=== PATIENT | female | born 1935 | race Caucasian/White ===

== ENCOUNTER 2017-08-06 15:36 | Observation (INO) | payer MEDICAID, MEDICARE, OTHER ==
[2017-08-06] MEDS ORDERED: TDAP Vaccine 0.5 mL Syr IM ONE (16:23)
--- NOTE | 2017-08-06 16:28 | ED PDOC ---
Arrival/HPI <Dany Crandall - Last Filed: 08/06/17 22:28> - General Historian: Patient <Luis Vilchis - Last Filed: 08/09/17 15:17> - General Chief Complaint: Trauma Time Seen by Provider: 08/06/17 16:21 - History of Present Illness Narrative History of Present Illness (Text): 08/06/17 16:24 82 year old female, last tetanus doesn't remember, pmh including htn/ hypothyroidism/osteoporosis/anemia, nkda, complaining of fall today and doesn' t remember the event about 6 hours ago. Pt. stated that she walk to the pharmacy today, fall and doesn't remember what happen except she woke up with 2 people around her which she sustained lt. sided facial laceration. Pt. had similar fall about 1 week ago which she fall on her lower back, been having pain on the lower back but doesn't wanna get seen, no chest pain or shortness of breath today, doesn't remember what happened, can not provide the full story , no numbness or tingling, no other medical or psychological complaints. (Luis Vilchis) Past Medical History - Provider Review Nursing Documentation Reviewed: Yes - Infectious Disease Hx of Infectious Diseases: None - Cardiac Hx Cardiac Disorders: No - Pulmonary Hx Respiratory Disorders: No - Neurological Hx Neurological Disorder: No - HEENT Hx HEENT Disorder: No - Renal Hx Renal Disorder: No - Endocrine/Metabolic Hx Endocrine Disorders: Yes Hx Hypothyroidism: Yes - Hematological/Oncological Hx Blood Disorders: No - Integumentary Hx Dermatological Disorder: No - Musculoskeletal/Rheumatological Hx Musculoskeletal Disorders: No - Gastrointestinal Hx Gastrointestinal Disorders: No - Genitourinary/Gynecological Hx Prostate Cancer: No - Psychiatric Hx Hallucinations: No Hx Substance Use: No - Surgical History Hx Thyroidectomy: Yes - Anesthesia Hx Anesthesia: Yes Hx Anesthesia Reactions: No <Luis Vilchis - Last Filed: 08/09/17 15:17> Family/Social History - Physician Review Nursing Documentation Reviewed: Yes Family/Social History: Unknown Family HX Smoking Status: Never Smoked Hx Alcohol Use: No Hx Substance Use: No <Luis Vilchis - Last Filed: 08/09/17 15:17> Allergies/Home Meds <Dany Crandall - Last Filed: 08/06/17 22:28> <Vilchis,Luis Q - Last Filed: 08/09/17 15:17> Allergies/Adverse Reactions: Allergies No Known Allergies Allergy (Verified 08/06/17 15:42) Home Medications: Home Meds Medication Instructions Recorded Confirmed Cyanocobalamin [Vitamin B12] 1 tab PO DAILY 08/06/17 08/06/17 Folic Acid 1 mg PO DAILY 08/06/17 08/06/17 Review of Systems - Review of Systems Constitutional: absent: Fatigue, Fevers Eyes: absent: Vision Changes ENT: absent: Hearing Changes Respiratory: absent: SOB, Cough Cardiovascular: Syncope. absent: Chest Pain Gastrointestinal: absent: Abdominal Pain, Diarrhea, Nausea, Vomiting Skin: Laceration. absent: Rash, Pruritis, Skin Lesions, Abscess, Ulcer, Cellulitis Neurological: absent: Headache, Dizziness Psychiatric: absent: Anxiety, Depression, Suicidal Ideation <Luis Vilchis Q - Last Filed: 08/09/17 15:17> Physical Exam Vital Signs Reviewed: Yes Temperature: Afebrile Blood Pressure: Normal Pulse: Tachycardic Respiratory Rate: Normal Appearance: Positive for: Well-Appearing, Non-Toxic, Comfortable Pain Distress: Mild Mental Status: Positive for: Alert and Oriented X 3 - Systems Exam Head: Present: Atraumatic, Normocephalic, Other (Facial: lt. lateral eyebrow region visible M-shaped laceration approx. 3cm noted with superficial to intermediate depth with mild lt. periorbital swelling, no deformities.). No: Tenderness, Contusion, Swelling, Ecchymosis, Abrasion Pupils: Present: PERRL Extroacular Muscles: Present: EOMI Conjunctiva: Present: Normal Ears: Present: NORMAL TM, Normal Canal. No: Erythema Mouth: Present: Moist Mucous Membranes Nose (External): Present: Atraumatic. No: Abrasion, Contusion, Laceration Nose (Internal): Present: Normal Inspection, No Active Bleeding. No: Rhinorrhea , Septal Hematoma, Epistaxis Neck: Present: Normal Range of Motion, Trachea Midline. No: MIDLINE TENDERNESS , Paraspinal Tenderness, Lymphadenopathy Respiratory/Chest: Present: Clear to Auscultation, Good Air Exchange. No: Respiratory Distress, Accessory Muscle Use, Wheezes, Decreased Breath Sounds, Rales, Retracting, Rhonchi, Tachypneic, Tender to Palpation Cardiovascular: Present: Regular Rate and Rhythm, Normal S1, S2. No: Murmurs Abdomen: Present: Normal Bowel Sounds. No: Tenderness, Distention, Peritoneal Signs, Rebound, Guarding Back: Present: Normal Inspection, Other (Thoracic to LS spine: +ttp on the lt. paraspinal region of the lumbar region, no thoracic spine tenderness or step off , no paraspinal thoracic region, FROM without limitation, sensation intact, motor 5/5. ). No: CVA Tenderness, Pain with Leg Raise, Decubitus Ulcer Upper Extremity: Present: Normal Inspection. No: Cyanosis, Edema Lower Extremity: Present: Normal Inspection. No: Edema Neurological: Present: GCS=15, CN II-XII Intact, Speech Normal, Motor Func Grossly Intact, Gait Normal, Memory Normal Skin: Present: Warm, Dry, Normal Color. No: Rashes Psychiatric: Present: Alert, Oriented x 3, Normal Insight, Normal Concentration <Luis Vilchis - Last Filed: 08/09/17 15:17> Vital Signs Temp Pulse Resp BP Pulse Ox 08/06/17 19:54 90 18 141/87 97 08/06/17 18:30 88 18 145/92 H 98 08/06/17 15:47 97.6 F 109 H 16 125/82 98 Medical Decision Making <Dany Crandall - Last Filed: 08/06/17 22:28> - RAD Interpretation Science Professor: Radiologist - EKG Interpretation Interpreted by ED Physician: Yes Type: 12 lead EKG <Luis Vilchis - Last Filed: 08/09/17 15:17> ED Course and Treatment: 08/06/17 16:32 -labs/ua -CT -Chest xray -EKG -IVF/aspirin po once negative for ICH intracranially -cardiac monitor technician -NIH score is 0 -Wound irrigate, clean, would suture -Observe and reassess 08/06/17 21:31 -Sensation intact, motor 5/5, wound irrigate with normal saline 1000cc, clean with betadine, 1% lidocaine injected locally approx. 1cc, 6-0 nylon made 6 sutures, hemostasis obtained, bacitracin and gauze dressing applied, sensation intact, motor 5/5. -Orthostatic v/s performed and no acute findings. -EKG: NSR @ 83 BPM, no ST elevation or depression, no T wave inversion. -Chest xray: Emergency room wet read show no active disease -CT Head: Left facial bruising/edema with laceration, no underlying fracture identified, no acute intracranial abnormality -CT Facial: Left facial and periorbital soft tissue swelling and bruising with laceration no underlying fracture, sinusitis noted -CT Lumbar: Degenerative change, no acute fracture -Based on the patient's given history and story, I would likely to admit her to rule out any cardiac or neurological cause of her syncope. -Family request Dr. Verdugo for admission, pending call back and case endorsed to Dr. Crandall as I discussed the case with Dr. Crandall. 08/06/17 21:43 -I spoke to Dr. polk, discussed about the case/labs/radiology result, agreed on the admission for telemetry to her service. -Pt. is on the levothryoxine 25mcg and request her dose, ordered. -Dr. Crandall agreed on the admission order as he is requesting for the admission order. (Luis Vilchis) - Lab Interpretations Microbiology Results: Microbiology Results 08/06/17 20:00 Urine,Clean Catch Urine Culture - Final No Growth (<1,000 CFU/ML) Lab Results: 08/06/17 16:30 08/06/17 16:30 Lab Results 08/06/17 21:00: Urine Color Light yellow, Urine Appearance Clear, Urine pH 7.0, Ur Specific [place] 1.010, Urine Protein Negative, Urine Glucose (UA) Negative, Urine Ketones Negative, Urine Blood Small H, Urine Nitrate Negative, Urine Bilirubin Negative, Urine Urobilinogen 0.2, Ur Leukocyte Esterase Small H, Urine RBC 0 - 2, Urine WBC 0 - 2, Ur Epithelial Cells None, Urine Bacteria Many 08/06/17 16:30: WBC 8.4, RBC 3.97, Hgb 12.3, Hct 35.6 L, MCV 89.7, MCH 31.0, MCHC 34.6, RDW 12.9, Plt Count 294, MPV 8.8, Gran % 77.9 H, Lymph % (Auto) 13.8 L, [place] % (Auto) 7.9 H, Eos % (Auto) 0.2 L, Baso % (Auto) 0.2, Gran # 6.50, Lymph # 1.2, [place] # 0.7 H, Eos # 0.0, Baso # 0.02 08/06/17 16:30: Sodium 131 L, Potassium 2.9 L*, Chloride 92 L, Carbon Dioxide 30 , Anion Gap 12, BUN 19, Creatinine 0.6 L, Est GFR ( Amer) > 60, Est GFR ( Non-Af Amer) > 60, Random Glucose 170 H, Calcium 9.0, Magnesium 1.9, Total Bilirubin 0.4, AST 34, ALT 25, Alkaline Phosphatase 71, Lactate Dehydrogenase 536, Total Creatine Kinase 202, Troponin I < 0.01, Total Protein 7.2, Albumin 4.1, Globulin 3.1, Albumin/Globulin Ratio 1.3 - RAD Interpretation Radiology Orders: 08/06/17 16:21 HEAD W/O CONTRAST [CT] Stat LUMBAR SPINE W/O CONTRAST [CT] Stat CHEST PORTABLE [RAD] Stat 08/06/17 16:22 MAXILLOFACIAL W/O CONTRAST [CT] Stat CT Head: FINDINGS: Brain: There is dilatation of sulci gyri and ventricles. There is no midline shift. There is decreased attenuation in periventricular white matter. There are basal ganglia calcifications bilaterally. There are no focal masses. There are no focal hemorrhages. Roberts-white differentiation is visualized. Ventricles: See above. Bones: Cranial vault is intact. No facial fractures are visualized. Soft tissues: There is left facial and periorbital bruising and edema. There is laceration with air in the subcutaneous tissues. Sinuses: There is no acute sinusitis. Ears and mastoids: Middle ears and mastoids are unremarkable. Orbits: Globes are intact. IMPRESSION: Left facial bruising/edema with laceration, no underlying fracture identified, no acute intracranial abnormality Thank you for allowing us to participate in the care of your patient. Dictated and Authenticated by: Edna Dang MD 08/06/2017 8:12 PM Eastern Time ([place] & [place]) CT Facial: FINDINGS: Bones/joints: There are no acute facial bone fractures. There are degenerative changes in the upper cervical spine. Soft tissues: There is left facial and periorbital edema and bruising. There is laceration with air in the soft tissues of the left temporal region. There are no facial masses Vasculature: Lack of contrast limits evaluation of vascular structures. Lymph nodes: There is no pathologic adenopathy. Orbits: Globes are intact. Retrobulbar structures are symmetric. Salivary glands: Parotid and submandibular glands are unremarkable. Sinuses: There is minimal mucoperiosteal thickening in the maxillary sinuses. There is mild mucosal thickening in the ethmoid air cells. There are no air-fluid levels in the sinuses. Ears and mastoids: Middle ears and mastoids are unremarkable. Dental: Patient is edentulous. Brain: No focal abnormalities are seen in visualized portion of the brain. IMPRESSION: Left facial and periorbital soft tissue swelling and bruising with laceration no underlying fracture Additional findings as described above. Thank you for allowing us to participate in the care of your patient. Dictated and Authenticated by: Edna Dang CT Lumbar: FINDINGS: Vertebrae: T12 is incompletely imaged. L1 and L4 vertebral bodies are normal in height. There is mild posterior loss of height at L5. Posterior elements are intact at all levels. There is degenerative facet disease greatest L3-L4, L4-L5 and L5-S1. Sacroiliac joints are patent. Bony structures are osteopenic. There is posterior disc space narrowing T12-L1, L1-L2 and L2/L3. There is vacuum phenomena at L2-L3 and L4-L5. There is anterolisthesis of L3 on L4 with posterior disc bulging. There is retrolisthesis of L4 on L5 with spur formation encroaching on the bony canal. There is mild disc bulging. There is marked L4-L5 and L5-S1 disc space narrowing. There is subchondral sclerosis and subchondral cyst formation. Discs/spinal canal/neural foramina: See above. Soft tissues: Psoas and paraspinous muscles are symmetric. Vasculature: There are vascular calcifications. IMPRESSION: Degenerative change, no acute fracture Thank you for allowing us to participate in the care of your patient. Dictated and Authenticated by: Edna Dang MD 08/06/2017 8:25 PM Eastern Time ([place] & [place]) Chest xray: Bilateral apical thickening, please view the official report for complete report. (Luis Vilchis) - EKG Interpretation EKG Interpretation (Text): 08/06/17 17:20 -EKG: NSR @ 83 BPM, no ST elevation or depression, no T wave inversion. (Luis Vilchis) - Medication Orders Current Medication Orders: Discontinued Medications Amlodipine Besylate (Norvasc) 5 mg PO DAILY [facility] Last Admin: 08/08/17 09:28 Dose: 5 mg Aspirin (Aspirin) 325 mg PO STAT STA Stop: 08/06/17 20:25 Last Admin: 08/06/17 22:27 Dose: 325 mg Aspirin (Aspirin Chewable) 81 mg PO DAILY [facility] Last Admin: 08/08/17 09:28 Dose: 81 mg Famotidine (Pepcid) 20 mg IV DAILY [facility] Last Admin: 08/08/17 09:28 Dose: 20 mg eMAR Start Stop Document 08/08/17 09:28 KE (Rec: 08/08/17 09:28 KE [id number]) Intravenous Solution Start Date 08/08/17 Start Time 09:28 Sodium Chloride (Sodium Chloride 0.9%) 1,000 mls @ 100 mls/hr IV .Q10H [facility] Last Admin: 08/06/17 16:36 Dose: 100 mls/hr eMAR Start Stop Document 08/06/17 16:36 EQ (Rec: 08/06/17 16:36 EQ [id number]) Intravenous Solution Start Date 08/06/17 Start Time 16:36 Sodium Chloride (Sodium Chloride 0.9%) 1,000 mls @ 75 mls/hr IV .[id number] [facility] Last Admin: 08/07/17 12:18 Dose: Levothyroxine Sodium (Synthroid) 25 mcg PO STAT STA Stop: 08/06/17 21:43 Last Admin: 08/06/17 22:27 Dose: 25 mcg Potassium Chloride (K-Dur 20 Meq Er Tab) 40 meq PO STAT STA Stop: 08/06/17 17:50 Last Admin: 08/06/17 19:53 Dose: 40 meq Potassium Chloride (K-Dur 20 Meq Er Tab) 20 meq PO ONCE ONE Stop: 08/07/17 07:14 Last Admin: 08/07/17 09:26 Dose: 20 meq Potassium Chloride (K-Dur 20 Meq Er Tab) 40 meq PO ONCE ONE Stop: 08/07/17 14:22 Last Admin: 08/07/17 15:11 Dose: 40 meq Tetanus/Reduced Diphtheria/Acell Pertussis (Boostrix Vaccine Inj) 0.5 ml IM .ONCE ONE Stop: 08/06/17 16:24 Last Admin: 08/06/17 16:48 Dose: 0.5 ml Immunization Registry Document 08/06/17 16:48 EQ (Rec: 08/06/17 16:48 EQ [id number]) Immunization Registry Consent Date 08/06/17 NIHSS Scale ([place]) Time Performed: 16:24 - How Severe is the [place] Baseline Level of Consciousness: 0=Alert LOC to Questions: 0=Both comments correct LOC to commands: 0=Obeys both correctly Best Gaze: 0=Normal Visual: 0=No visual loss Facial: 0=Normal Motor Arm - Left: 0=No drift Motor Arm - Right: 0=No drift Motor Leg - Left: 0=No drift Motor Leg - Right: 0=No drift Limb Ataxia: 0=Absent Sensory: 0=Normal Best Language: 0=No aphasia Dysarthia: 0=Normal articulation Extinction & Inattention (Neglect): 0=Normal, no object Score: 0 Risk Level: No Stroke Risk <Luis Vilchis - Last Filed: 08/09/17 15:17> rTPA Inclusion/Exclusion - Refusal of Treatment Patient Refused Treatment: Yes - Inclusion Criteria for Altepase Patient is 18 years or Older: Yes The Clinical Diagnosis of Ischemic Stroke That is Causing a Potentially Disabling Neurological Deficit: No Time of Onset is Well Established to be Less Than 270 Minute Before Treatment Would Begin: No Risk/Benefit Discussed With Patient/Family Member Present: Yes - Exclusion Criteria for Altepase Uncontrolled Hypertension at Time of Treatment (Systolic BP above 185 or Diastolic BP above 110 mmHg): No Less Than 3 Months Had a Recent: Head Trauma Active Internal Bleeding: No Evidence of an Intracranial Hemorrhage: No Suspicion of Subarachnoid Hemorrhage on Pretreatment Evaluation Even if CT Head Negative For Hemorrhage: No <Luis Vilchis - Last Filed: 08/09/17 15:17> - PA / BORING MACHINE OPERATOR VERTICAL / Resident Statement HÉCTOR has reviewed & agrees with the documentation as recorded. HÉCTOR has examined the patient and agrees with the treatment plan. <Dany Crandall - Last Filed: 08/06/17 22:28> - PA / BORING MACHINE OPERATOR VERTICAL / Resident Statement HÉCTOR has reviewed & agrees with the documentation as recorded. <Luis Vilchis - Last Filed: 08/09/17 15:17> Disposition/Present on Arrival <Dany Crandall - Last Filed: 08/06/17 22:28> - Present on Arrival Any Indicators Present on Arrival: No History of DVT/PE: No History of Uncontrolled Diabetes: No Urinary Catheter: No History of Decub. Ulcer: No History Surgical Site Infection Following: None - Disposition Have Diagnosis and Disposition been Completed?: Yes Disposition Time: 20:29 Patient Plan: Admission, Telemetry <Luis Vilchis - Last Filed: 08/09/17 15:17> - Disposition Diagnosis: Syncope, Sinusitis, Facial contusion, Facial laceration, Hypokalemia Disposition: HOSPITALIZED Condition: STABLE
[2017-08-06] MEDS ORDERED: Sodium Chloride 0.9% 1,000 ML IV SCH (16:30)
[2017-08-06 17:02] LABS: BASO # 0.02 K/mm3 (0.0-2.0); BASO % 0.2 % (0.0-3.0); EOS % 0.2 % (1.5-5.0); GRAN # 6.5 (1.4-6.5); GRAN % 77.9 % (50.0-68.0); HEMATOCRIT 35.6 % (36.0-48.0); LYMPH # 1.2 (1.2-3.4); LYMPH % 13.8 % (22.0-35.0); MEAN CELL VOLUME 89.7 fl (80.0-105.0); MEAN CORPUSCULAR HGB CONC 34.6 g/dl (31.0-37.0); MEAN PLATELET VOLUME 8.8 fl (7.0-11.0); MONO # 0.7 (0.1-0.6); MONO % 7.9 % (1.0-6.0); RED CELL DISTRIBUTION WIDTH 12.9 % (11.5-14.5); WHITE BLOOD COUNT 8.4 10^3/ul (4.5-11.0)
[2017-08-06 17:27] LABS: TROPONIN I < 0.01 ng/mL
[2017-08-06 17:38] LABS: BLOOD UREA NITROGEN 19 mg/dL (7-21); CHLORIDE 92 mmol/L (98-107); GFR AFRICAN-AMERICAN > 60; GLUCOSE,RANDOM 170 mg/dL (70-110); SODIUM 131 mmol/L (132-148)
[2017-08-06 17:39] LABS: ALB/GLOB RATIO 1.3 (1.1-1.8); ALKALINE PHOSPHATASE 71 U/L (38-126); ALT/SGPT 25 U/L (7-56); AST/SGOT 34 U/L (14-36); BILIRUBIN,TOTAL 0.4 mg/dL (0.2-1.3); CARBON DIOXIDE 30 mmol/L (21-33); MAGNESIUM 1.9 mg/dL (1.7-2.2); TOTAL PROTEIN 7.2 g/dL (5.8-8.3)
[2017-08-06 17:43] LABS: POTASSIUM 2.9 mmol/L (3.6-5.0)
[2017-08-06] MEDS ORDERED: Potassium Chloride 20 mEq ER Tab PO STA (17:49)
--- NOTE | 2017-08-06 20:13 | CT ---
EXAM: CT Head Without Intravenous Contrast EXAM DATE/TIME: 08/06/2017 4:21 PM CLINICAL HISTORY: 82 years old, female; Injury or trauma; Fall; Initial encounter; Laceration; Consciousness not specified; Without residual foreign body; Face; Injury date: 08-06-17 TECHNIQUE: Axial computed tomography images of the head/brain without intravenous contrast. All CT scans at this facility use one or more dose reduction techniques, viz.: automated exposure control; ma/kV adjustment per patient size (including targeted exams where dose is matched to indication; i.e. head); or iterative reconstruction technique. COMPARISON: There are no prior studies for comparison. FINDINGS: Brain: There is dilatation of sulci gyri and ventricles. There is no midline shift. There is decreased attenuation in periventricular white matter. There are basal ganglia calcifications bilaterally. There are no focal masses. There are no focal hemorrhages. Roberts-white differentiation is visualized. Ventricles: See above. Bones: Cranial vault is intact. No facial fractures are visualized. Soft tissues: There is left facial and periorbital bruising and edema. There is laceration with air in the subcutaneous tissues. Sinuses: There is no acute sinusitis. Ears and mastoids: Middle ears and mastoids are unremarkable. Orbits: Globes are intact. IMPRESSION: Left facial bruising/edema with laceration, no underlying fracture identified, no acute intracranial abnormality
--- NOTE | 2017-08-06 20:19 | CT ---
EXAM: CT Maxillofacial Without Intravenous Contrast EXAM DATE/TIME: 08/06/2017 4:22 PM CLINICAL HISTORY: 82 years old, female; Injury or trauma; Fall; Initial encounter; Laceration; Cheek bone; Left; Without residual foreign body; Injury date: 08-06-17; Additional info: Lt. Sided facial injury S/P fall TECHNIQUE: Axial computed tomography images of the face without intravenous contrast. All CT scans at this facility use one or more dose reduction techniques, viz.: automated exposure control; ma/kV adjustment per patient size (including targeted exams where dose is matched to indication; i.e. head); or iterative reconstruction technique. Coronal and sagittal reformatted images were created and reviewed. COMPARISON: There are no prior studies for comparison. FINDINGS: Bones/joints: There are no acute facial bone fractures. There are degenerative changes in the upper cervical spine. Soft tissues: There is left facial and periorbital edema and bruising. There is laceration with air in the soft tissues of the left temporal region. There are no facial masses Vasculature: Lack of contrast limits evaluation of vascular structures. Lymph nodes: There is no pathologic adenopathy. Orbits: Globes are intact. Retrobulbar structures are symmetric. Salivary glands: Parotid and submandibular glands are unremarkable. Sinuses: There is minimal mucoperiosteal thickening in the maxillary sinuses. There is mild mucosal thickening in the ethmoid air cells. There are no air-fluid levels in the sinuses. Ears and mastoids: Middle ears and mastoids are unremarkable. Dental: Patient is edentulous. Brain: No focal abnormalities are seen in visualized portion of the brain. IMPRESSION: Left facial and periorbital soft tissue swelling and bruising with laceration no underlying fracture Additional findings as described above.
--- NOTE | 2017-08-06 20:25 | CT ---
EXAM: CT Lumbar Spine Without Intravenous Contrast EXAM DATE/TIME: 08/06/2017 4:21 PM CLINICAL HISTORY: 82 years old, female; Injury or trauma; Fall; Initial encounter; Blunt trauma (contusions or hematomas); Injury date: 08-06-17; Additional info: Fall and lower back pain x 1 week TECHNIQUE: Axial computed tomography images of the lumbar spine without intravenous contrast. All CT scans at this facility use one or more dose reduction techniques, viz.: automated exposure control; ma/kV adjustment per patient size (including targeted exams where dose is matched to indication; i.e. head); or iterative reconstruction technique. Coronal and sagittal reformatted images were created and reviewed. COMPARISON: There are no prior studies for comparison. FINDINGS: Vertebrae: T12 is incompletely imaged. L1 and L4 vertebral bodies are normal in height. There is mild posterior loss of height at L5. Posterior elements are intact at all levels. There is degenerative facet disease greatest L3-L4, L4-L5 and L5-S1. Sacroiliac joints are patent. Bony structures are osteopenic. There is posterior disc space narrowing T12-L1, L1-L2 and L2/L3. There is vacuum phenomena at L2-L3 and L4-L5. There is anterolisthesis of L3 on L4 with posterior disc bulging. There is retrolisthesis of L4 on L5 with spur formation encroaching on the bony canal. There is mild disc bulging. There is marked L4-L5 and L5-S1 disc space narrowing. There is subchondral sclerosis and subchondral cyst formation. Discs/spinal canal/neural foramina: See above. Soft tissues: Psoas and paraspinous muscles are symmetric. Vasculature: There are vascular calcifications. IMPRESSION: Degenerative change, no acute fracture
[2017-08-06] MEDS ORDERED: Levothyroxine 25 MCG TAB PO STA (21:42)
[2017-08-06 21:50] LABS: URINE BILIRUBIN NEGATIVE (NEGATIVE); URINE BLOOD SMALL (NEGATIVE); URINE GLUCOSE (UA) NEGATIVE (NEGATIVE); URINE KETONE NEGATIVE (NEGATIVE); URINE LEUKOCYTE ESTERASE SMALL Leu/uL (NEGATIVE); URINE PROTEIN NEGATIVE mg/dL (<30 mg/dL); URINE UROBILINOGEN 0.2 E.U./dL (<1 E.U./dL)
[2017-08-06 21:54] LABS: URINE APPEARANCE CLEAR (CLEAR); URINE COLOR LIGHT YELLOW (YELLOW)
[2017-08-06] MEDS: Sodium Chloride 0.9% 1,000 ML IV SCH (22:27)
[2017-08-06 22:59] LABS: URINE BACTERIA MANY (NEG); URINE RBC 0 - 2 /hpf (0-2); URINE WBC 0 - 2 /hpf (0-6)
[2017-08-07] MEDS ORDERED: Potassium Chloride 20 mEq ER Tab PO ONE ×2 (07:13→14:21)
[2017-08-07 07:33] LABS: BASO # 0.02 K/mm3 (0.0-2.0); BASO % 0.4 % (0.0-3.0); EOS # 0.1 (0.0-0.7); EOS % 0.9 % (1.5-5.0); GRAN # 4.17 (1.4-6.5); GRAN % 73.2 % (50.0-68.0); HEMATOCRIT 35.9 % (36.0-48.0); LYMPH % 17.6 % (22.0-35.0); MEAN CELL VOLUME 90.4 fl (80.0-105.0); MEAN CORPUSCULAR HEMOGLOBIN 30.2 pg (25.0-35.0); MEAN CORPUSCULAR HGB CONC 33.4 g/dl (31.0-37.0); MEAN PLATELET VOLUME 8.3 fl (7.0-11.0); MONO # 0.5 (0.1-0.6); MONO % 7.9 % (1.0-6.0); WHITE BLOOD COUNT 5.7 10^3/ul (4.5-11.0)
[2017-08-07 07:41] LABS: BLOOD UREA NITROGEN 13 mg/dL (7-21); CALCIUM 8.3 mg/dL (8.4-10.5); CARBON DIOXIDE 28 mmol/L (21-33); CHLORIDE 99 mmol/L (98-107); GFR AFRICAN-AMERICAN > 60; GLUCOSE,RANDOM 112 mg/dL (70-110); POTASSIUM 3.6 mmol/L (3.6-5.0); SODIUM 135 mmol/L (132-148)
[2017-08-07 07:52] LABS: TROPONIN I < 0.01 ng/mL
[2017-08-07 08:00] VITALS: O2SAT 95
--- NOTE | 2017-08-07 08:50 | HP ---
HISTORY OF PRESENT ILLNESS: Ms. Olivia is an 82-year-old female, well known to me from office. She was walking on the road and was transported to the ER. She is unaware of the event in between. She passed out on the road and was transported to ER with the ambulance. She had laceration on the left side of the scalp, had few stitches, placed in the ER. No history of convulsions. Her sodium was found to be low at 131 and potassium at 2.7. Potassium was repleted in the ER. She is alert, oriented. She does not remember events. No witnessed convulsions during altered sensorium. PAST MEDICAL HISTORY: Hypertension, B12 deficiency, hypothyroidism, abnormal weight loss. FAMILY HISTORY: Noncontributory. PERSONAL HISTORY: Never smoked, no history of alcohol abuse. SOCIAL HISTORY: Lives with her at home. ALLERGIES: No known drug allergies. HOME MEDICATIONS: Folic acid 1 mg daily, cyanocobalamin 1 tablet p.o. daily, hydrochlorothiazide 25 daily, amlodipine 5 mg daily. REVIEW OF SYSTEMS: As per HPI. Rest of 12-point review of systems reviewed and negative. PHYSICAL EXAMINATION: GENERAL: Comfortable in bed, in no acute distress. VITAL SIGNS: Temperature 98.7, heart rate 90 per minute, respiratory rate 18 per minute, and blood pressure 140/87, pulse oximetry 98% on room air. HEENT: Bruise around the left eye. Stitches on the left side of the scalp. Pallor positive. NECK: No lymphadenopathy. CHEST: Air entry present and equal bilaterally. No added sounds. CARDIOVASCULAR: S1 and S2 normal. No murmur. No gallop. ABDOMEN: Soft and nontender. No hepatosplenomegaly. EXTREMITIES: No edema. HUMAN RESOURCES SAFETY MANAGER: Alert and oriented x3. No focal sensory or motor deficits. SKIN: Bruises around the left eye. SPINE: Nontender. LABORATORY DATA: CT of the head, unremarkable. EKG, normal sinus rhythm. Chest x-ray, no infiltrate. Large white count 8.4, hemoglobin 12.2, hematocrit 35.6, and platelet count 294. Sodium 131, potassium 2.9, BUN 19, creatinine 0.6, and glucose 170. Cardiac enzyme not elevated. ASSESSMENT: 1. Syncope. 2. Hypertension. 3. B12 deficiency. 4. Abnormal weight loss. 5. Laceration on the left side of the face. PLAN: She will be admitted to telemonitoring. We will continue levothyroxine 25 mcg daily, hold hydrochlorothiazide, IV fluid normal saline at 80 mL an hour, replete potassium. She received 40 mEq in the ER. We will repeat the labs in the a.m. Cardiac enzymes ordered with the a.m. labs. Cardiology consultation with Dr. Coyle requested. Neurology consultation with Dr. Keita requested. Echocardiogram ordered. Carotid Doppler and vertebral artery Doppler requested. Hemoglobin and hematocrit stable. We will reassess after the studies are done. We will continue IV fluids. Pepcid 20 mg IV daily. We will start Norvasc 5 mg daily for elevated blood pressure. Cris Gupta MD
[2017-08-07] MEDS: Sodium Chloride 0.9% 1,000 ML IV SCH ×2 (09:36→12:18)
--- NOTE | 2017-08-07 09:50 | RAD ---
HISTORY: medical clearance COMPARISON: None available. TECHNIQUE: Chest, one view. FINDINGS: LUNGS: Biapical pleural thickening. No focal consolidation. Please note that chest x-ray has limited sensitivity for the detection of pulmonary masses. PLEURA: No significant pleural effusion identified. No definite pneumothorax . CARDIOVASCULAR: Ectatic aorta. Atherosclerotic calcifications. Heart size appears top normal. OSSEOUS STRUCTURES: Degenerative changes. VISUALIZED UPPER ABDOMEN: Unremarkable. OTHER FINDINGS: None. IMPRESSION: Biapical pleural thickening. Ectatic aorta containing atherosclerotic calcifications.
--- NOTE | 2017-08-07 15:12 | US ---
PROCEDURE: Bilateral carotid artery duplex ultrasound HISTORY: Carotid stenosis syncope PHYSICIAN(S): Rocky Jessica MD. TECHNIQUE: Duplex sonography and color-flow Doppler were used to evaluate the carotid bifurcations and limited segments of the vertebral arteries bilaterally. FINDINGS: There is mild smooth heterogeneous plaque noted at the carotid bifurcations bilaterally. The peak systolic velocity in the proximal right internal carotid artery is 62 cm/sec. This corresponds to a 20 to 39% proximal right ICA stenosis. Normal systolic velocities are noted in the proximal right external carotid artery. There is antegrade flow in the right vertebral artery. The peak systolic velocity in the proximal left internal carotid artery is 63 cm/sec. This corresponds to a 20 to 39% proximal left ICA stenosis. Normal systolic velocities are noted in the proximal left external carotid artery. There is antegrade flow in the left vertebral artery. IMPRESSION: 1. Bilateral 20-39% proximal ICA stenoses. 2. Antegrade flow in both vertebral arteries.
--- NOTE | 2017-08-07 16:53 | CARD ---
APPROVED REPORT EKG Measurement Heart [id number] ME [id number] [id number] <Conclusion> Normal sinus rhythm Possible Left atrial enlargement Borderline ECG
--- NOTE | 2017-08-08 04:37 | CON ---
DATE: HISTORY OF PRESENT ILLNESS: This is an 82-year-old female with past medical history of hypertension, hypothyroidism, who fell and does not remember the event, daughter at bedside, and the patient is hard of hearing and the patient woke up with 2 people around and had left facial laceration and left periorbital hematoma. Similar fall occurs a week ago and brought to the hospital for further evaluation. PAST MEDICAL HISTORY: Hypertension, hypothyroidism, anemia. ALLERGIES: NO KNOWN DRUG ALLERGY. HOME MEDICATIONS: Vitamin B12 and folic acid. REVIEW OF SYSTEMS: A 10-point system is negative except fall and left periorbital hematoma. PHYSICAL EXAMINATION: VITAL SIGNS: On examination, blood pressure 125/82. HEENT: Normocephalic, atraumatic. NECK: Supple. NEURO EXAM: Awake, oriented to self. Hard of hearing. Cranial nerves II through XII were tested. Pupils reactive. EOM intact. Visual ellison full. No facial asymmetry. Tongue midline. MOTOR EXAMINATION: Moves all the extremities equally. Tone normal. Deep tendon reflexes 1+. Both plantars are downgoing. Sensory appears intact. Cerebellar and gait, deferred. IMPRESSION: Syncope, workup in progress. Continue present management. LABORATORY DATA: WBC 8.4, hemoglobin 12.3, hematocrit 35.6, platelet 294. Sodium 131, potassium 2.9, chloride 92, CO2 of 30, glucose 170, BUN 19, creatinine 0.6. Workup in progress, we will follow up, and no acute intracranial abnormality. Vasquez Keita MD
[2017-08-08 06:15] LABS: BASO # 0.03 K/mm3 (0.0-2.0); BASO % 0.4 % (0.0-3.0); EOS # 0.1 (0.0-0.7); EOS % 0.7 % (1.5-5.0); GRAN # 5.12 (1.4-6.5); GRAN % 75.7 % (50.0-68.0); LYMPH # 1.1 (1.2-3.4); LYMPH % 15.8 % (22.0-35.0); MEAN CELL VOLUME 91.1 fl (80.0-105.0); MEAN CORPUSCULAR HEMOGLOBIN 30.3 pg (25.0-35.0); MEAN CORPUSCULAR HGB CONC 33.2 g/dl (31.0-37.0); MEAN PLATELET VOLUME 8.5 fl (7.0-11.0); MONO # 0.5 (0.1-0.6); MONO % 7.4 % (1.0-6.0); RED CELL DISTRIBUTION WIDTH 13.2 % (11.5-14.5); WHITE BLOOD COUNT 6.8 10^3/ul (4.5-11.0)
[2017-08-08 06:43] LABS: ALB/GLOB RATIO 1.2 (1.1-1.8); ALKALINE PHOSPHATASE 58 U/L (38-126); ALT/SGPT 26 U/L (7-56); AST/SGOT 27 U/L (14-36); BILIRUBIN,TOTAL 0.5 mg/dL (0.2-1.3); BLOOD UREA NITROGEN 11 mg/dL (7-21); CALCIUM 8.3 mg/dL (8.4-10.5); CARBON DIOXIDE 25 mmol/L (21-33); CHLORIDE 104 mmol/L (98-107); GFR AFRICAN-AMERICAN > 60; GLUCOSE,RANDOM 110 mg/dL (70-110); PHOSPHOROUS 2.1 mg/dL (2.5-4.5); POTASSIUM 4.2 mmol/L (3.6-5.0); SODIUM 137 mmol/L (132-148); TOTAL PROTEIN 7.1 g/dL (5.8-8.3)
[2017-08-08 07:04] LABS: CHOLESTEROL 163 mg/dL (130-200)
[2017-08-08 07:23] VITALS: BP 156/92; RESP 19; TEMP 98
[2017-08-08 10:03] VITALS: PULSE 84
--- NOTE | 2017-08-08 10:48 | CON ---
DATE: 08/07/2017 REASON FOR CONSULTATION: Syncope, cardiac evaluation. BRIEF CLINICAL HISTORY: This is an 82-year-old female with past medical history of hypertension, hypothyroidism, syncope, and history of anemia, was going and suddenly probably lost conscious and brought to the ER. The patient has no recollection what has happened to her, history of fall, but states that she was going to some place and she has no recollection what has happened to her. Probably, she fell down and passed out. When she woke up, two people were around her and ambulance brought her here. The patient denies chest pain, denies shortness of breath, denies any palpitations, though on arrival the blood workup showed potassium was 2.9. PAST MEDICAL HISTORY: Significant for B12 deficiency, anemia, hypothyroidism, and history of weight loss. FAMILY HISTORY: Noncontributory. SOCIAL HISTORY: No history of smoking. No history of alcohol abuse. Lives with . ALLERGIES: NO KNOWN DRUG ALLERGIES. CURRENT MEDICATIONS: The patient was taking folic acid 1 mg daily, cyanocobalamin one tablet p.o. daily, hydrochlorothiazide 25 mg daily, and amlodipine 5 mg daily. REVIEW OF SYSTEMS: As per HPI. PHYSICAL EXAMINATION: As follows; VITAL SIGNS: Temperature afebrile, heart rate and blood pressure 124/76. HEENT: PERRLA. Extraocular muscles intact. NECK: Supple. No carotid bruits or thyromegaly. CHEST: Clear to auscultation. HEART: S1 and S2 regular. ABDOMEN: Soft. EXTREMITIES: Clubbing and cyanosis negative. LABORATORY DATA: EKG shows normal sinus, possibly left atrial abnormality, heart rate 83. Blood workup; WBC 8.4, hemoglobin 12.2, hematocrit 35.6, platelet count 294. Chemistry showed sodium 130, potassium 2.9, chloride 92, carbon dioxide 30, , BUN 19, and creatinine 0.1. IMPRESSION: Possibly this episode of falling is secondary to severe hypokalemia, but rule out any ischemic event, rule out any arrhythmia, rule out any orthostatic hypotension. PLAN: Aggressively supplement potassium. Echo to rule out any structural heart disease, orthostatic hypotension. Lipid profile, TSH, and hemoglobin A1c. Further recommendation as per hospital course. Probably, this low potassium could be secondary to hydrochlorothiazide. So far troponin remains negative, we will follow the second set, pending. We will get echo and carotid duplex workup. Thank you, Dr. Gupta for providing me the opportunity in taking care of the patient, Monica Olivia. We will follow with you. Paulino Coyle MD
--- NOTE | 2017-08-08 10:59 | DS ---
DISCHARGE DIAGNOSES: 1. Syncope. 2. Hypertension. 3. B12 deficiency 4. Abnormal weight loss. 5. Laceration left side of the face. 6. Hypokalemia. HOSPITAL COURSE: The patient was admitted after she had a syncope, road side. She developed laceration on the left side of the face and stitches were placed in the ER. She was evaluated by Neurology, Dr. Keita. She was evaluated by Cardiology, Dr. Coyle. Cardiac Doppler was done. Carotid and vertebral Doppler did not show significant stenosis. She remains stable during the hospitalization. Cardiac enzymes were within limits. PHYSICAL EXAMINATION: GENERAL: Comfortable in bed, in no acute distress. VITAL SIGNS: Temperature is 98.8, heart rate is 86 per minute, blood pressure is 150/90, and pulse oximetry is 98% on room air. HEENT: Pallor positive. Bruises around the left eye and stitches in place on the left temporal. NECK: No lymphadenopathy. CHEST: Air entry present equal bilateral. No added sounds. CARDIOVASCULAR S1 and S2 normal. No murmur. No gallop. ABDOMEN: Soft and nontender. No hepatosplenomegaly. EXTREMITIES: No edema. CENTRAL NERVOUS SYSTEM: Alert and oriented x3. No focal sensory or motor deficit. SKIN: As above. SPINE: Nontender. CONDITION ON DISCHARGE: Stable. DISPOSITION: Discharged to home. DISCHARGE MEDICATIONS: Norvasc 5 mg p.o. daily, aspirin 81 mg daily, Pepcid 20 mg daily, B12 1 mg daily, and folic acid 1 mg daily. DISCHARGE INSTRUCTIONS: Follow up with Dr. Gupta on 08/17/2017 at 10:30 a.m. Follow up with Dr. Coyle and follow up with Dr. Keita. Had a lengthy discussion with the daughter at bedside. Explained her medical condition. Answered all her questions to her satisfaction. Discussed with the staff nurse. Time spent in preparing discharge and coordinating care is 60 minutes. Cris Gupta MD
--- NOTE | 2017-08-08 11:31 | CARD ---
APPROVED REPORT EXAM: Two-dimensional and M-mode echocardiogram with Doppler and color Doppler. Other Information Quality : AverageRhythm : INDICATION Syncope 2D DIMENSIONS Left Atrium (2D)3.4 (1.6-4.0cm)IVSd1.3 (0.7-1.1cm) LVDd3.1 (3.9-5.9cm)PWd1.3 (0.7-1.1cm) LVDs2.1 (2.5-4.0cm)FS (%) 32.5 % LVEF (%)62.0 (>50%) M-Mode DIMENSIONS Aortic Root3.10 (2.2-3.7cm)Aortic Cusp Exc.1.80 (1.5-2.0cm) Aortic Valve AoV Peak Ztlrkkqe396.0cm/s Mitral Valve MV E Sehiteeb33.2cm/sMV A Uumxjcir228.0cm/sE/A ratio0.7 TDI E/Lateral E'0.0E/Medial E'0.0 Tricuspid Valve TR Peak Xbxqeybv527jw/sRAP [id number] Peak Gr.22mmHg [id number] LEFT VENTRICLE The left ventricle is normal size. There is moderate concentric left ventricular hypertrophy. The left ventricular function is normal. The left ventricular ejection fraction is within the normal range. There is normal LV segmental wall motion. RIGHT VENTRICLE The right ventricle is normal size. ATRIA The left atrium size is normal. The right atrium size is normal. The interatrial septum is intact with no evidence for an atrial septal defect. AORTIC VALVE The aortic valve is normal in structure. MITRAL VALVE The mitral valve is normal in structure. Mitral annular calcification is moderate. TRICUSPID VALVE The tricuspid valve is not well visualized. There is mild tricuspid regurgitation. PULMONIC VALVE The pulmonic valve is not well visualized. GREAT VESSELS The aortic root is normal in size. PERICARDIAL EFFUSION There is no pericardial effusion. <Conclusion> The left ventricle is normal size. There is moderate concentric left ventricular hypertrophy. The left ventricular function is normal.
--- NOTE | 2017-08-08 12:48 | PN ---
DATE: 08/08/2017 REASON FOR CONSULTATION AND FOLLOWUP: Syncope, cardiac evaluation. SUBJECTIVE: The patient denies any chest pain, shortness of breath, or any palpitation. PHYSICAL EXAMINATION: As follows: VITAL SIGNS: Temperature is afebrile, heart rate is 84, and blood pressure is 152/92. HEENT: PERRLA intact. NECK: Supple. No carotid bruits or thyromegaly. CHEST: Clear to auscultation. HEART: S1 and S2, regular. ABDOMEN: Soft. EXTREMITIES: Clubbing and cyanosis negative. LABORATORY DATA: Blood workup as follows: WBC of 6.8, hemoglobin of 12.3, hematocrit of 37, and platelet count of 313. Chemistry shows sodium of 130, potassium of 4.2, chloride of 102, carbon dioxide 25, anion gap of 12, BUN of 11, and creatinine of 0.6, TSH of 5.66. IMPRESSION: An 82-year-old female with past medical history significant for B12 deficiency, anemia, hypothyroidism, and history of weight loss who was fell down because of severe hypokalemia. Prior to that the patient had 2 episodes of fall most likely secondary to hypokalemia. The patient denies any chest pain, shortness of breath or any palpitations. So far troponin remains negative. Orthostatic hypotension was done yesterday found to be negative, as follows; blood pressure lying down 139/90, sitting 149/96 and standing 152/93. RECOMMENDATION: Continue gentle supplement. Continue gentle antihypertensive medications, amlodipine. Hold hydrochlorothiazide. Monitor electrolytes. Discussed with the patient and discussed with the daughter. We will follow with you. Awaiting for the echo to be done, we will follow when the echo is done. We will follow with you. Thank you Dr. Gupta for providing the opportunity in taking care of the patient, Monica Olivia. Paulino Coyle MD
--- NOTE | 2017-08-08 19:09 | EEG ---
DATE: 08/08/2017 CONDITION OF THE RECORDING: Drowsy. DIAGNOSIS: Syncope. MEDICATIONS: Reviewed by nurse's reconciliation sheet. INTERPRETATION: This is a 16-channel international recording. Background activity of this tracing was composed of 8 cycles per second. There was a small amount of beta activity of 16 to 20 cycles per second seen in this recording. There was a small amount of theta activity of 5 to 7 cycles per seconds seen in this recording. Drowsiness was characterized by mixed beta and theta activities. Sleep was characterized by vertex transient waves, sleep spindles, and bilateral slowing. Photic stimulation showed no changes in tracing. No paroxysmal activity is noted in this recording. CONCLUSION: This is a normal drowsy EEG. No evidence of any epileptiform activity. Please clinically correlate. Tra Keita MD
== END 2017-08-08 11:18 | disposition home or self-care (01) ==
LOC: ED 15:36 → ERH 21:40 → 2RSO 22:30
PROVIDERS: ADMIT Internal Medicine Medical Oncology; ATTEND Internal Medicine Medical Oncology
DX: R55 Syncope and collapse (principal); S01.81XA Laceration without foreign body of other part of head, initial encounter; E87.6 Hypokalemia; S00.83XA Contusion of other part of head, initial encounter; I10 Essential (primary) hypertension; E53.8 Deficiency of other specified B group vitamins; R63.4 Abnormal weight loss; E03.9 Hypothyroidism, unspecified; D64.9 Anemia, unspecified; H91.90 Unspecified hearing loss, unspecified ear; W19.XXXA Unspecified fall, initial encounter; Y93.01 Activity, walking, marching and hiking; Y92.480 Sidewalk as the place of occurrence of the external cause
CPT/HCPCS: 36415; 70450; 70486; 71010; 72131; 80048; 80053; 80061; 81001; 82550; 83036; 83615; 83735; 84100; 84443; 84484; 85025; 87086; 90471; 90715; 93005; 93306; 93880; 95812; 97116; 97161; 99285; G0378; G8978; G8979; G8980; J7040

== ENCOUNTER 2017-08-12 13:32 | Emergency (ER) | payer MEDICARE, OTHER ==
[2017-08-12 13:42] VITALS: BMI 22.1
[2017-08-12 13:46] VITALS: RESP 18; TEMP 97.6; O2SAT 96
--- NOTE | 2017-08-12 14:36 | ED PDOC ---
Arrival/HPI - General Chief Complaint: Wound Check Time Seen by Provider: 08/12/17 14:06 Historian: Patient - History of Present Illness Narrative History of Present Illness (Text): 08/12/17 14:35 A 82 year old female presents to the emergency department for suture removal to left eyebrow. Patient reports stitches were applied 7 days ago. She denies any redness or swelling. Patient denies any fever, chills or other complaints at this time. PMD: Dr. Tate Past Medical History - Provider Review Nursing Documentation Reviewed: Yes - Infectious Disease Hx of Infectious Diseases: None - Cardiac Hx Cardiac Disorders: No - Pulmonary Hx Respiratory Disorders: No - Neurological Hx Syncope: Yes - HEENT Hx HEENT Disorder: No - Renal Hx Renal Disorder: No - Endocrine/Metabolic Hx Endocrine Disorders: Yes Hx Hypothyroidism: Yes - Hematological/Oncological Hx Blood Disorders: No - Integumentary Hx Dermatological Disorder: No - Musculoskeletal/Rheumatological Hx Musculoskeletal Disorders: No - Gastrointestinal Hx Gastrointestinal Disorders: No - Genitourinary/Gynecological Hx Prostate Cancer: No - Psychiatric Hx Hallucinations: No Hx Substance Use: No - Surgical History Hx Thyroidectomy: Yes - Anesthesia Hx Anesthesia: Yes Hx Anesthesia Reactions: No Family/Social History - Physician Review Nursing Documentation Reviewed: Yes Family/Social History: No Known Family HX Smoking Status: Never Smoked Hx Alcohol Use: No Hx Substance Use: No Allergies/Home Meds Allergies/Adverse Reactions: Allergies No Known Allergies Allergy (Verified 08/06/17 15:42) Home Medications: Home Meds Medication Instructions Recorded Confirmed Cyanocobalamin [Vitamin B12] 1 tab PO DAILY 08/06/17 08/12/17 Folic Acid 1 mg PO DAILY 08/06/17 08/12/17 Review of Systems - Physician Review All systems were reviewed & negative as marked: Yes - Review of Systems Constitutional: absent: Fevers, Night Sweats Skin: Other (Suture removal. No redness or swelling.) Physical Exam Vital Signs Reviewed: Yes Vital Signs Temp Pulse Resp BP Pulse Ox 08/12/17 13:46 97.6 F 104 H 18 153/88 H 96 Temperature: Afebrile Blood Pressure: Hypertensive Pulse: Tachycardic Respiratory Rate: Normal Appearance: Positive for: Well-Appearing, Non-Toxic, Comfortable Pain Distress: None Mental Status: Positive for: Alert and Oriented X 3 - Systems Exam Head: Present: Other (Well heeled sutured removed form left eyebrow. No erythema or swelling.) Pupils: Present: PERRL Extroacular Muscles: Present: EOMI Conjunctiva: Present: Normal Mouth: Present: Moist Mucous Membranes Neurological: Present: GCS=15, CN II-XII Intact, Speech Normal Skin: Present: Warm, Dry, Normal Color. No: Rashes Psychiatric: Present: Alert, Oriented x 3, Normal Insight, Normal Concentration Medical Decision Making ED Course and Treatment: 08/12/17 14:35 Impression: A 82 year old female presents for suture removal Plan: -- Suture removal -- Reassess and disposition Progress Notes: I have discussed the plan with the patient, who expresses understanding. Patient in agreement with plan to be discharged home. Patient is stable for discharge. Patient was instructed to follow up with physician or return if symptoms worsen or new concerning symptoms arise. - PA / PRODUCT PROM[employer]ER [employer] / Resident Statement MD/DO has reviewed & agrees with the documentation as recorded. - Scribe Statement The provider has reviewed the documentation as recorded by the Sandi Ponce Provider Scribe Attestation: All medical record entries made by the Scribe were at my direction and personally dictated by me. I have reviewed the chart and agree that the record accurately reflects my personal performance of the history, physical exam, medical decision making, and the department course for this patient. I have also personally directed, reviewed, and agree with the discharge instructions and disposition. Disposition/Present on Arrival - Present on Arrival Any Indicators Present on Arrival: No History of DVT/PE: No History of Uncontrolled Diabetes: No Urinary Catheter: No History of Decub. Ulcer: No History Surgical Site Infection Following: None - Disposition Have Diagnosis and Disposition been Completed?: Yes Diagnosis: Visit for wound check, Visit for suture removal Disposition: HOME/ ROUTINE Disposition Time: 14:20 Patient Plan: Discharge Patient Problems: Current Active Problems Problem Status Onset Visit for wound check Acute Visit for suture removal Acute Condition: STABLE Discharge Instructions (ExitCare): Acute Wound Care (ED) Print Language: HONDURAN Additional Instructions: Thank you for letting us take care of you today. You were treated for wound check, suture removal. The emergency medical care you received today was directed at your acute symptoms. Return to the Emergency Department if your symptoms worsen, do not improve, or if you have any other problems. Please contact your doctor in 2 days for re-evaluation and follow up. Bring any paperwork you were given at discharge with you along with any medications you are taking to your follow up visit. Our treatment cannot replace ongoing medical care by a primary care provider (PCP) outside of the emergency department. Thank you for allowing the [facility] team to be part of your care today. Referrals: Milly Tate V, DO [Primary Care Provider] - Follow up with primary Forms: [employer] ([place]wana)
[2017-08-12 15:13] VITALS: BP 148/75; PULSE 98
== END 2017-08-12 14:51 | disposition home or self-care (01) ==
LOC: ED 13:32
DX: Z48.02 Encounter for removal of sutures (principal); Z51.89 Encounter for other specified aftercare; E03.9 Hypothyroidism, unspecified

== ENCOUNTER 2017-11-09 22:09 | Observation (INO) | payer MEDICARE, MEDICAID ==
[2017-11-09 22:09] VITALS: BMI 22.1
--- NOTE | 2017-11-09 22:42 | ED PDOC ---
Arrival/HPI - General Chief Complaint: High Blood Pressure Time Seen by Provider: 11/09/17 22:16 Historian: Patient, Spouse - History of Present Illness Narrative History of Present Illness (Text): 11/09/17 22:36 An 82 year old female, whose past medical history includes hypothyroidism, osteoporosis, anemia, presents to the emergency department complaining of high blood pressure this evening. The patient states that she was not feeling well and told her that she needed to lay down. He advised her not to and to check her blood pressure. She states that her blood pressure was high and she got nervous, made dinner, and kept taking her blood pressure throughout the night which kept getting higher. She called her daughter and took her blood pressure with another machine and the reading was even higher which prompted her family to vicente her into the emergency department. The patient denies fevers , chills, headache, dizziness, chest pain, shortness of breath, dyspnea on exertion, cough, abdominal pain, nausea, vomiting, diarrhea, back pain, neck pain, urinary/bowel changes, or any other somatic complaint. PMD: Dr. Tate Time/Duration: Other (This evening) Symptom Onset: Sudden Symptom Course: Unchanged Activities at Onset: Rest, Light Context: Home Past Medical History - Provider Review Nursing Documentation Reviewed: Yes - Infectious Disease Hx of Infectious Diseases: None - Cardiac Hx Cardiac Disorders: No - Pulmonary Hx Respiratory Disorders: No - Neurological Hx Syncope: Yes - HEENT Hx HEENT Disorder: No - Renal Hx Renal Disorder: No - Endocrine/Metabolic Hx Endocrine Disorders: Yes Hx Hypothyroidism: Yes - Hematological/Oncological Hx Blood Disorders: No - Integumentary Hx Dermatological Disorder: No - Musculoskeletal/Rheumatological Hx Musculoskeletal Disorders: No - Gastrointestinal Hx Gastrointestinal Disorders: No - Genitourinary/Gynecological Hx Prostate Cancer: No - Psychiatric Hx Hallucinations: No Hx Substance Use: No - Surgical History Hx Thyroidectomy: Yes - Anesthesia Hx Anesthesia: Yes Hx Anesthesia Reactions: No Family/Social History - Physician Review Nursing Documentation Reviewed: Yes Family/Social History: No Known Family HX Smoking Status: Never Smoked Hx Alcohol Use: No Hx Substance Use: No Allergies/Home Meds Allergies/Adverse Reactions: Allergies No Known Allergies Allergy (Verified 11/09/17 23:00) Home Medications: Home Meds Medication Instructions Recorded Confirmed Cyanocobalamin [Vitamin B12] 2 tab PO DAILY 08/06/17 11/10/17 Folic Acid 1 mg PO DAILY 08/06/17 11/09/17 Levothyroxine [Synthroid] 1 tab PO DAILY 11/09/17 11/10/17 Lovastatin 20 mg PO HS 11/09/17 11/10/17 amLODIPine [Norvasc] 10 mg PO DAILY 11/10/17 11/10/17 Review of Systems - Physician Review All systems were reviewed & negative as marked: Yes - Review of Systems Constitutional: absent: Fevers, Night Sweats Respiratory: absent: SOB, Cough Cardiovascular: absent: Chest Pain, IZQUIERDO Gastrointestinal: absent: Abdominal Pain, Constipation, Diarrhea, Nausea, Vomiting Genitourinary Female: absent: Urine Output Changes Musculoskeletal: absent: Back Pain, Neck Pain Neurological: absent: Headache, Dizziness Physical Exam Vital Signs Reviewed: Yes Vital Signs Temp Pulse Resp BP Pulse Ox 11/10/17 02:49 76 19 121/81 99 11/10/17 01:42 80 17 102/68 98 11/09/17 23:44 74 162/91 H 11/09/17 23:06 77 17 159/95 H 97 11/09/17 22:23 98.2 F 94 H 18 183/103 H 99 Temperature: Afebrile Blood Pressure: Hypertensive Pulse: Tachycardic Respiratory Rate: Normal Appearance: Positive for: Well-Appearing, Non-Toxic, Comfortable Pain Distress: None Mental Status: Positive for: Alert and Oriented X 3 - Systems Exam Head: Present: Atraumatic, Normocephalic Pupils: Present: PERRL Extroacular Muscles: Present: EOMI Conjunctiva: Present: Normal Mouth: Present: Moist Mucous Membranes Neck: Present: Normal Range of Motion Respiratory/Chest: Present: Clear to Auscultation, Good Air Exchange. No: Respiratory Distress, Accessory Muscle Use Cardiovascular: Present: Regular Rate and Rhythm, Normal S1, S2. No: Murmurs Abdomen: Present: Normal Bowel Sounds. No: Tenderness, Distention, Peritoneal Signs Back: Present: Normal Inspection Upper Extremity: Present: Normal Inspection. No: Cyanosis, Edema Lower Extremity: Present: Normal Inspection. No: Edema Neurological: Present: GCS=15, CN II-XII Intact, Speech Normal Skin: Present: Warm, Dry, Normal Color. No: Rashes Psychiatric: Present: Alert, Oriented x 3, Normal Insight, Normal Concentration Medical Decision Making ED Course and Treatment: 11/09/17 22:42 Impression: An 82 year old female presents to the emergency department complaining of high blood pressure this evening. Plan: -- EKG -- Head CT -- Chest X-ray -- Urinalysis -- Labs -- Reassess and disposition Progress Notes: EKG: Ordered, reviewed, and independently interpreted the EKG. Rate : 87 BPM Rhythm : NSR 11/09/17 23:10: Patient states that she has no history of hypertension. She states that she does not take Norvasc. CT Head Without Intravenous Contrast EXAM DATE/TIME: 11/09/2017 10:36 PM Dictated and Authenticated by: Edna Dang MD 11/10/2017 12:48 AM Eastern Time ([place] & [place]) IMPRESSION: Atrophy and small vessel disease, no acute intracranial abnormality 11/10/17 01:55: Case discussed with Dr. Gupta who accepts patient to her service. Will admit patient to Telemetry. 11/10/17 02:29: Dr. Gupta believes that the patient does have a history of hypertension and should be taking the Norvasc which is in opposition with what the patient and daughter believes. - Lab Interpretations Lab Results: 11/09/17 22:54 11/09/17 22:54 Lab Results 11/09/17 23:35: Urine Color Yellow, Urine Appearance Sl cloudy, Urine pH 7.0, Ur Specific [place] 1.010, Urine Protein Trace H, Urine Glucose (UA) Negative, Urine Ketones Negative, Urine Blood Small H, Urine Nitrate Negative, Urine Bilirubin Negative, Urine Urobilinogen 0.2, Ur Leukocyte Esterase Negative, Urine RBC 0 - 2, Urine WBC 0 - 2, Ur Epithelial Cells 0 - 2 11/09/17 22:54: Sodium 139, Potassium 3.2 L, Chloride 99, Carbon Dioxide 31, Anion Gap 12, BUN 14, Creatinine 0.5 L, Est GFR ( Amer) > 60, Est GFR ( Non-Af Amer) > 60, Random Glucose 142 H, Calcium 9.3, Total Bilirubin 0.4, AST 30, ALT 26, Alkaline Phosphatase 104, Lactate Dehydrogenase 597, Total Creatine Kinase 139, Troponin I < 0.01, Total Protein 7.8, Albumin 4.4, Globulin 3.5, Albumin/Globulin Ratio 1.3 11/09/17 22:54: PT 10.2, INR 0.90 L 11/09/17 22:54: WBC 9.5 D, RBC 4.55, Hgb 13.9, Hct 40.9, MCV 89.9, MCH 30.5, MCHC 34.0, RDW 13.5, Plt Count 326, MPV 9.0, Gran % 79.8 H, Lymph % (Auto) 13.8 L, [place] % (Auto) 5.5, Eos % (Auto) 0.8 L, Baso % (Auto) 0.1, Gran # 7.57 H, Lymph # (Auto) 1.3, [place] # (Auto) 0.5, Eos # (Auto) 0.1, Baso # (Auto) 0.01 I have reviewed the lab results: Yes - RAD Interpretation Radiology Orders: 11/09/17 22:36 HEAD W/O CONTRAST [CT] Stat CHEST PORTABLE [RAD] Stat - EKG Interpretation Interpreted by ED Physician: Yes Type: 12 lead EKG - Medication Orders Current Medication Orders: Discontinued Medications Amlodipine Besylate (Norvasc) 5 mg PO DAILY [facility] Last Admin: 11/10/17 11:12 Dose: 5 mg MAR Pulse and Blood Pressure Document 11/10/17 11:12 CD (Rec: 11/10/17 11:13 CD [id number]) Pulse Pulse Rate (60-90) 93 Blood Pressure Blood Pressure (100/60-150/90) 113/67 Aspirin (Aspirin Chewable) 81 mg PO DAILY [facility] Last Admin: 11/10/17 11:13 Dose: 81 mg Atorvastatin Calcium (Lipitor) 10 mg PO HS [facility] Clonidine HCl (Catapres) 0.1 mg PO STAT STA Stop: 11/09/17 23:33 Last Admin: 11/09/17 23:44 Dose: 0.1 mg MAR Pulse and Blood Pressure Document 11/09/17 23:44 IT (Rec: 11/09/17 23:44 IT [id number]) Pulse Pulse Rate (60-90) 74 Blood Pressure Blood Pressure (100/60-150/90) 162/91 Cyanocobalamin (Vitamin B12 1000 Mcg Tab) 1,000 mcg PO DAILY [facility] Levothyroxine Sodium (Synthroid) 50 mcg PO DAILY [facility] Last Admin: 11/10/17 11:13 Dose: 50 mcg Lorazepam (Ativan) 1 mg PO ONCE ONE PRN Reason: Protocol Stop: 11/10/17 02:40 Last Admin: 11/10/17 02:46 Dose: 1 mg Re-Assess: Reassess Psych Meds Document 11/10/17 03:46 ST (Rec: 11/10/17 04:47 [id number]) Reassess Psych Med Effective Potassium Chloride (K-Dur 20 Meq Er Tab) 20 meq PO STAT STA Stop: 11/10/17 03:17 Last Admin: 11/10/17 03:26 Dose: 20 meq - PA / [employer] / Resident Statement MD/DO has reviewed & agrees with the documentation as recorded. - Scribe Statement The provider has reviewed the documentation as recorded by the Scribe Rosina Nolan Provider Scribe Attestation: All medical record entries made by the Scribe were at my direction and personally dictated by me. I have reviewed the chart and agree that the record accurately reflects my personal performance of the history, physical exam, medical decision making, and the department course for this patient. I have also personally directed, reviewed, and agree with the discharge instructions and disposition. Disposition/Present on Arrival - Present on Arrival Any Indicators Present on Arrival: No History of DVT/PE: No History of Uncontrolled Diabetes: No Urinary Catheter: No History of Decub. Ulcer: No History Surgical Site Infection Following: None - Disposition Have Diagnosis and Disposition been Completed?: Yes Diagnosis: Hypertensive crisis, Hypothyroidism, Confusion Disposition: HOSPITALIZED Disposition Time: 02:27 Patient Plan: Admission Condition: GOOD
[2017-11-09 23:01] LABS: BASO # 0.01 K/mm3 (0.0-2.0); BASO % 0.1 % (0.0-3.0); EOS # 0.1 (0.0-0.7); EOS % 0.8 % (1.5-5.0); GRAN # 7.57 (1.4-6.5); GRAN % 79.8 % (50.0-68.0); HEMOGLOBIN 13.9 g/dL (12.0-16.0); LYMPH # 1.3 (1.2-3.4); LYMPH % 13.8 % (22.0-35.0); MEAN CELL VOLUME 89.9 fl (80.0-105.0); MEAN CORPUSCULAR HEMOGLOBIN 30.5 pg (25.0-35.0); MONO # 0.5 (0.1-0.6); MONO % 5.5 % (1.0-6.0); RBC 4.55 10^6/uL (3.5-6.1); RED CELL DISTRIBUTION WIDTH 13.5 % (11.5-14.5); WHITE BLOOD COUNT 9.5 10^3/ul (4.5-11.0)
[2017-11-09 23:11] LABS: ALB/GLOB RATIO 1.3 (1.1-1.8); ALBUMIN 4.4 g/dL (3.0-4.8); ALT/SGPT 26 U/L (7-56); AST/SGOT 30 U/L (14-36); BLOOD UREA NITROGEN 14 mg/dL (7-21); CALCIUM 9.3 mg/dL (8.4-10.5); GFR AFRICAN-AMERICAN > 60; GFR NON-AFRICAN AMERICAN > 60
[2017-11-09 23:12] LABS: INR 0.9 (0.93-1.08); PROTHROMBIN TIME 10.2 SECONDS (9.4-12.5)
[2017-11-09 23:28] LABS: TROPONIN I < 0.01 ng/mL
[2017-11-10 00:03] LABS: URINE APPEARANCE SL CLOUDY (CLEAR); URINE BILIRUBIN NEGATIVE (NEGATIVE); URINE BLOOD SMALL (NEGATIVE); URINE COLOR YELLOW (YELLOW); URINE GLUCOSE (UA) NEGATIVE (NEGATIVE); URINE LEUKOCYTE ESTERASE NEGATIVE Leu/uL (NEGATIVE); URINE PROTEIN TRACE mg/dL (<30 mg/dL); URINE UROBILINOGEN 0.2 E.U./dL (<1 E.U./dL)
[2017-11-10 00:37] LABS: URINE EPITHELIAL CELLS 0 - 2 /hpf (0-5); URINE RBC 0 - 2 /hpf (0-2); URINE WBC 0 - 2 /hpf (0-6)
--- NOTE | 2017-11-10 00:48 | CT ---
EXAM: CT Head Without Intravenous Contrast EXAM DATE/TIME: 11/09/2017 10:36 PM CLINICAL HISTORY: 82 years old, female; Signs and symptoms; Other: Hyperternsion; Additional info: Hypertensive urgency TECHNIQUE: Axial computed tomography images of the head/brain without intravenous contrast. All CT scans at this facility use one or more dose reduction techniques, viz.: automated exposure control; ma/kV adjustment per patient size (including targeted exams where dose is matched to indication; i.e. head); or iterative reconstruction technique. Coronal and sagittal reformatted images were created and reviewed. COMPARISON: CT - HEAD W/O CONTRAST 2017-08-06 18:58 FINDINGS: Brain: There is prominence of sulci gyri and ventricles. There is no midline shift. There is decreased attenuation in periventricular white matter.There are basal ganglia calcifications bilaterally. There are no focal masses. There are no focal hemorrhages. Roberts-white differentiation is visualized. Ventricles: See above. Bones/joints: Bones: Cranial vault is intact. Soft tissues: unremarkable Sinuses: There is no acute sinusitis. Ears and mastoids: Middle ears and mastoids are unremarkable. Orbits: Orbital contents are unremarkable. IMPRESSION: Atrophy and small vessel disease, no acute intracranial abnormality
[2017-11-10] MEDS ORDERED: Potassium Chloride 20 mEq ER Tab PO STA (03:16)
[2017-11-10 05:44] VITALS: O2SAT 97
--- NOTE | 2017-11-10 09:09 | RAD ---
HISTORY: hypertensive crisis COMPARISON: 08/06/2017 FINDINGS: LUNGS: No active pulmonary disease. PLEURA: No significant pleural effusion identified, no pneumothorax apparent. CARDIOVASCULAR: No radiographic findings to suggest acute or significant cardiovascular disease. OSSEOUS STRUCTURES: No significant abnormalities. VISUALIZED UPPER ABDOMEN: Normal. OTHER FINDINGS: None. IMPRESSION: No active disease. No significant interval change compared to the prior examination(s).
[2017-11-10] MEDS ORDERED: Levothyroxine 50 MCG TAB PO SCH (11:00)
[2017-11-10 13:15] VITALS: BP 136/85; PULSE 95; RESP 18; TEMP 97.7
--- NOTE | 2017-11-10 15:59 | CARD ---
APPROVED REPORT EKG Measurement Heart [id number] <Conclusion> Normal sinus rhythm Possible Left atrial enlargement
--- NOTE | 2017-11-11 01:10 | DS ---
DISCHARGE DIAGNOSES: 1. Uncontrolled hypertension. 2. Anemia. 3. B12 deficiency. 4. Hypothyroidism. 6. Osteoporosis. HOSPITAL COURSE: The patient was admitted for uncontrolled hypertension. She received Catapres in the ER. She discontinued Norvasc on her own because she was confused about the medication. Norvasc was resumed during hospitalization. She did not require additional doses of Catapres. Blood pressure remained controlled during the entire hospital stay. No chest pain. She follows with Dr. Coyle as outpatient. She has pending appointment with Dr. Coyle in few weeks. EKG was within normal limits. Daughter at bedside. Discussed with the daughter. PHYSICAL EXAMINATION ON DISCHARGE: GENERAL: Comfortable in bed, in no acute distress. VITAL SIGNS: Temperature is 98.7, heart rate 80 per minute, blood pressure 140/60. HEENT: Normal. NECK: No lymphadenopathy. CHEST: Air entry present and equal bilaterally. No added sounds. CARDIOVASCULAR: S1 and S2 normal. No murmur. No gallop. ABDOMEN: Soft, nontender. No hepatosplenomegaly. EXTREMITIES: No edema. JOURNEYMAN MILLWRIGHT: Alert, oriented x3. No focal sensory or motor deficit. SKIN: No petechia. No rash. SPINE: Nontender. CONDITION ON DISCHARGE: Stable. DISPOSITION: Discharge home. RECOMMENDATION: Continue home medications, Synthroid 50 mcg daily, resume Norvasc 10 mg daily, Lipitor 10 mg daily. B12 1 mg daily. Follow up in office in 1 week. Follow up with in 1 week. Discussed with the daughter at bedside. Diet, regular diet. All prescriptions given to the patient. Time spent in preparing discharge and coordinating care, 60 minutes. Cris Gupta MD
--- NOTE | 2017-11-13 07:32 | HP ---
HISTORY OF PRESENT ILLNESS: Ms. Olivia is an 82-year-old female presented to the ED on 11/09/2017 with not feeling well. She took her blood pressure at home, which was high at 180/100. She has history of hypothyroidism, osteoporosis, anemia, B12 deficiency. She also has anxiety. She stopped her medication Norvasc on her own. No chest pain, no shortness of breath. First set of serial troponins was negative. EKG, no ST-T changes. PAST MEDICAL HISTORY: Hypothyroidism, osteoporosis, anemia, B12 deficiency, syncope. PAST SURGICAL HISTORY: Thyroidectomy. FAMILY HISTORY: Noncontributory. PERSONAL HISTORY: Never smoked. No history of alcohol abuse. ALLERGIES: NO KNOWN DRUG ALLERGIES. HOME MEDICATIONS: B12, folic acid, Synthroid, lovastatin 20 mg p.o. at bedtime. REVIEW OF SYSTEMS: As per HPI. Rest of 12-point review of systems reviewed negative. PHYSICAL EXAMINATION: GENERAL: Comfortable in bed, in no acute distress. VITAL SIGNS: Temperature 98.7; blood pressure 160/90, repeat 102/68; heart rate is 98 per minute. HEENT: Normal. NECK: No lymphadenopathy. CHEST: Air entry present and equal bilaterally. No added sounds. CARDIOVASCULAR: S1, S2 normal. No murmur. No gallop. ABDOMEN: Soft, nontender. No hepatosplenomegaly. EXTREMITIES: No edema. SPINE: Nontender. EKG, no ST-T changes. LABORATORY DATA: White count 9.5, hemoglobin 13.9, hematocrit 40.9, platelet 326. Sodium 139, potassium 3.2, BUN 14, creatinine 0.5, glucose 142. ASSESSMENT: 1. Uncontrolled hypertension. 2. Hypothyroidism. 3. B12 deficiency. 4. Anemia. 5. Osteoporosis. PLAN: The patient is admitted to the hospital. We will resume Norvasc 10 mg daily, hydralazine 10 mg, aspirin 81 mg daily, Lipitor 10 mg daily, Synthroid 50 mcg daily. She was given Catapres 0.1 mg p.o. in the ER. Labs ordered for morning, CBC, BMP. Cris Gupta MD [facility] # [id number]
== END 2017-11-10 13:00 | disposition home or self-care (01) ==
LOC: ED 22:09 → ERH 11-10 02:07 → INTOOBSV 11-10 02:07 → ERH 11-10 02:53 → 2RNO 11-10 03:42
PROVIDERS: ADMIT Internal Medicine Medical Oncology; ATTEND Internal Medicine Medical Oncology
DX: I16.9 Hypertensive crisis, unspecified (principal); M81.0 Age-related osteoporosis without current pathological fracture; D64.9 Anemia, unspecified; I10 Essential (primary) hypertension; E89.0 Postprocedural hypothyroidism; E53.8 Deficiency of other specified B group vitamins; F41.9 Anxiety disorder, unspecified
CPT/HCPCS: 70450; 71045; 80053; 81001; 81003; 82550; 83615; 84484; 85025; 85610; 93005; 99284; G0378